=== PATIENT | male | born 1960 | race Caucasian/White ===

== ENCOUNTER 2016-10-26 22:21 | Emergency (ER) | payer OTHER ==
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
--- NOTE | 2016-10-26 23:40 | CT ---
History: Reason: Pain Exam: CT HEAD Without Contrast axial noncontrast images through the brain with multiplanar reformatted images Technique more: CTDI is 57.40 mGy and DLP is 1038.50 mGy-cm. Technique more: This CT exam was performed using one or more of the following dose reduction techniques: automated exposure control, adjustment of the mA and/or kV according to patient size, and/or use of iterative reconstruction technique. Comparison: None available FINDINGS: No intracranial hemorrhage, mass effect or calvarial fracture. The ventricles are within limits and midline. The العلي-white differentiation appears preserved. Mild volume loss, atrophy noted. The visualized paranasal sinuses and right mastoid are clear. Very mild partial fluid opacification left mastoid tip. Old left medial orbital wall fracture deformity. Right globe prosthesis. IMPRESSION: No intracranial hemorrhage, mass effect or calvarial fracture. Mild volume loss, atrophy noted. Very mild partial fluid opacification left mastoid tip. Old left medial orbital wall fracture deformity. Right globe prosthesis. Exam: CT C SPINE Without Contrast axial noncontrast images through the cervical spine with multiplanar reformatted images Technique more: CTDI is 70.90 mGy and DLP is 1047.80 and 589.60 mGy-cm. Technique more: This CT exam was performed using one or more of the following dose reduction techniques: automated exposure control, adjustment of the mA and/or kV according to patient size, and/or use of iterative reconstruction technique. Comparison: None available FINDINGS: No evidence of acute fracture or malalignment. The head is tilted to the right. No evidence of prevertebral soft tissue swelling. Multilevel spondylosis/discogenic change noted. 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 Bilateral left greater than right carotid calcific plaque formation noted. The visualized lung apices are clear. IMPRESSION: No evidence of acute fracture or malalignment. Multilevel spondylosis/discogenic change noted. 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 Bilateral left greater than right carotid calcific plaque formation noted. May consider follow-up with nonemergent carotid Doppler as warranted.
--- NOTE | 2016-10-26 23:42 | XR ---
History: Reason: Pain Exam: XR CXR 1 VIEW Comparison: None available FINDINGS: Possible anterior right third and fourth rib and possible lateral sixth rib fracture which may be acute, clinically correlate. The lungs appear clear. The cardiac silhouette appears upper limits for technique. Bilateral shoulder degenerative changes noted with appearance of possible intra-articular osseous body on the left. IMPRESSION: Possible anterior right third and fourth rib and possible lateral sixth rib fracture which may be acute, clinically correlate. Bilateral shoulder degenerative changes noted with appearance of possible intra-articular osseous body on the left.
--- NOTE | 2016-10-26 23:45 | XR ---
History: Reason: Pain Exam: XR PELVIS 2 images Comparison: None available FINDINGS: No evidence of fracture or dislocation. Handcuffs noted. IMPRESSION: No evidence of fracture or dislocation. Handcuffs noted.
[2016-10-27 00:04] VITALS: BP 153/93; PULSE 89; RESP 16; TEMP 97.3
== END 2016-10-27 00:07 | disposition home or self-care (01) ==
LOC: EC 22:21
DX: Z04.3 Encounter for examination and observation following other accident (principal); F10.129 Alcohol abuse with intoxication, unspecified; E11.9 Type 2 diabetes mellitus without complications; E78.5 Hyperlipidemia, unspecified; I10 Essential (primary) hypertension; E07.9 Disorder of thyroid, unspecified; F17.200 Nicotine dependence, unspecified, uncomplicated; Z79.82 Long term (current) use of aspirin; Z79.84 Long term (current) use of oral hypoglycemic drugs; Z79.899 Other long term (current) drug therapy; W19.XXXA Unspecified fall, initial encounter
CPT/HCPCS: 70450; 71010; 72125; 72170; 99285

== ENCOUNTER 2019-11-26 15:47 | Emergency (ER) | payer OTHER ==
[2019-11-26 15:53] VITALS: BP 132/75; PULSE 74; RESP 16; TEMP 98.2
--- NOTE | 2019-11-26 16:12 | ED ---
General Adult HPI - General Chief complaint: Recheck/Abnormal Lab/Rx Stated complaint: Lump in Neck Time Seen by Provider: 11/26/19 15:54 Source: patient, RN notes reviewed Mode of arrival: ambulatory Limitations: no limitations - History of Present Illness Initial comments: Patient is a 59-year-old male presenting to the emergency department with compl aints of swelling in the right side of his neck. Patient states symptoms have been present for around 6 months. Patient states he has difficulty swallowing with the right side of his throat however still seems to pass clearly to the left side. Patient states symptoms have been persistent. No dyspnea. Patient is a smoker. Patient is warned of risk of smoking. No chest pain or dyspnea. - Related Data Home Medications Medication Instructions Recorded Confirmed Aspirin [Adult Low Dose Aspirin EC] 81 mg PO DAILY 10/26/16 10/26/16 Atenolol/Chlorthalidone 0.5 tab PO DAILY 10/26/16 10/26/16 [Atenolol-Chlorthalidone 50-25] Ergocalciferol (Vitamin D2) 50,000 unit PO Q28D 10/26/16 10/26/16 [Vitamin D2] Levothyroxine Sodium [Synthroid] 25 mcg PO DAILY 10/26/16 10/26/16 Simvastatin 80 mg PO DAILY 10/26/16 10/26/16 allopurinoL [Zyloprim] 300 mg PO DAILY 10/26/16 10/26/16 lisinopriL [Zestril] 5 mg PO DAILY 10/26/16 10/26/16 metFORMIN HCL 1,000 mg PO W/SUPPER 10/26/16 10/26/16 Allergies Allergy/AdvReac Type Severity Reaction Status Date / Time No Known Allergies Allergy Verified 11/26/19 15:53 Review of Systems ROS Statement: Those systems with pertinent positive or pertinent negative responses have been documented in the HPI. ROS Other: All systems not noted in ROS Statement are negative. Constitutional: Denies: fever Eyes: Denies: eye pain ENT: Reports: as per HPI. Denies: ear pain Respiratory: Denies: cough, dyspnea Cardiovascular: Denies: chest pain Endocrine: Denies: fatigue Gastrointestinal: Denies: abdominal pain Genitourinary: Denies: dysuria Musculoskeletal: Denies: back pain Skin: Denies: rash Neurological: Denies: weakness Past Medical History Past Medical History: Diabetes Mellitus, Hyperlipidemia, Hypertension, Thyroid Disorder Additional Past Medical History / Comment(s): Gout, rigth eye blindness. History of Any Multi-Drug Resistant Organisms: None Reported Past Surgical History: No Surgical Hx Reported Past Psychological History: No Psychological Hx Reported Smoking Status: Never smoker Past Alcohol Use History: Abuse, Daily Past Drug Use History: None Reported General Exam Limitations: no limitations General appearance: alert, in no apparent distress Head exam: Present: normocephalic Eye exam: Present: normal appearance ENT exam: Present: normal oropharynx Neck exam: Present: normal inspection, other (No swelling). Absent: tenderness, lymphadenopathy Respiratory exam: Present: normal lung sounds bilaterally Cardiovascular Exam: Present: regular rate, normal rhythm GI/Abdominal exam: Present: soft. Absent: tenderness Extremities exam: Present: normal inspection Neurological exam: Present: alert, CN II-XII intact Psychiatric exam: Present: normal affect, normal mood Skin exam: Present: normal color Course Vital Signs 11/26/19 15:49 Temperature 98.2 F Pulse Rate 74 Respiratory 16 Rate Blood Pressure 132/75 O2 Sat by Pulse 98 Oximetry Medical Decision Making - Medical Decision Making Patient has eloped Disposition Clinical Impression: Dysphagia Disposition: Left Against Medical Advice Is patient prescribed a controlled substance at d/c from ED?: No Referrals: Balta Snider MD [Primary Care Provider] - 1-2 days Time of Disposition: 16:13
== END 2019-11-26 16:28 | disposition left against medical advice (07) ==
LOC: EC 15:47
DX: R13.10 Dysphagia, unspecified (principal); Z53.29 Procedure and treatment not carried out because of patient's decision for other reasons; I10 Essential (primary) hypertension; E78.5 Hyperlipidemia, unspecified; E07.9 Disorder of thyroid, unspecified; E11.9 Type 2 diabetes mellitus without complications; H54.61 Unqualified visual loss, right eye, normal vision left eye; Z79.82 Long term (current) use of aspirin; Z79.890 Hormone replacement therapy; Z79.899 Other long term (current) drug therapy; Z79.84 Long term (current) use of oral hypoglycemic drugs
CPT/HCPCS: 99283

== ENCOUNTER 2023-10-16 15:32 | Emergency (ER) | payer OTHER ==
[2023-10-16 15:43] VITALS: BP 137/76; PULSE 130; RESP 20; TEMP 97.3
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
[2023-10-16 16:40] LABS: ALT 13 U/L (4-49); AST 22 U/L (17-59); African American GFR (CKD) 72 (>60 ml/min/1.73 sqM); Albumin 4.1 g/dL (3.5-5.0); Alkaline Phosphatase 107 U/L (38-126); Anion Gap 16 mmol/L; Blood Urea Nitrogen 12 mg/dL (9-20); Calcium 8.9 mg/dL (8.4-10.2); Carbon Dioxide 20 mmol/L (22-30); Chloride 104 mmol/L (98-107); Glucose 204 mg/dL (74-99); Magnesium 1.8 mg/dL (1.6-2.3); Non-African American GFR(CKD) 62 (>60 ml/min/1.73 sqM); Potassium 3.8 mmol/L (3.5-5.1); Sodium 140 mmol/L (137-145); Total Bilirubin 0.7 mg/dL (0.2-1.3); Total Protein 6.7 g/dL (6.3-8.2)
[2023-10-16 16:57] LABS: Alcohol 315 mg/dL
[2023-10-16 17:43] LABS: Amphetamine Screen,Urine Not Detected (NotDetected); Barbiturate Screen,Urine Not Detected (NotDetected); Benzodiazepines Screen,Urine Not Detected (NotDetected); Cocaine Screen,Urine Not Detected (NotDetected); Methadone Screen, Urine Not Detected (NotDetected); Opiate Screen,Urine Detected (NotDetected); Oxycodone Screen, Urine Not Detected (NotDetected); Phencyclidine Screen,Urine Not Detected (NotDetected); Tricyclic Antidepressant,Urine Not Detected (NotDetected); Urn Cannabinoid Scrn Not Detected (NotDetected)
== END 2023-10-16 19:59 | disposition home or self-care (01) ==
LOC: EC 15:32
DX: S00.31XA Abrasion of nose, initial encounter (principal); F10.129 Alcohol abuse with intoxication, unspecified; F17.200 Nicotine dependence, unspecified, uncomplicated; Y90.8 Blood alcohol level of 240 mg/100 ml or more; X58.XXXA Exposure to other specified factors, initial encounter
CPT/HCPCS: 36415; 80053; 83735; 80306; 99284; G0480; 80320

== ENCOUNTER → 2023-11-28 | Outpatient (CLI) | payer OTHER ==
--- NOTE | 2023-11-28 14:44 | US ---
EXAMINATION TYPE: US kidneys/renal and bladder DATE OF EXAM: 11/28/2023 COMPARISON: NONE CLINICAL INDICATION: Male, 63 years old with history of R39.198 DIFFICULTY URINATING; Difficulty urin ating EXAM MEASUREMENTS: Right Kidney: 11.8 x 6.1 x 4.8 cm Left Kidney: 11.7 x 5.2 x 4.9 cm Post Void Residual Volume: 0 mL, bladder not seen post-void Right Kidney: No hydronephrosis or masses seen Left Kidney: Anechoic area seen lower pole: 1.4 x 1.2 x 0.8 cm. Bladder: Appears anechoic. Bilateral Jets seen: Yes Normal Post Void Residual: Yes. Evaluation was slightly limited, patient's bladder was not fully di stended, patient did not want to prep bladder longer. Bladder not seen post-void. IMPRESSION: 1. No evidence for obstructive uropathy or mass. 2. Urinary bladder is grossly unremarkable in anechoic.
== END | disposition home or self-care (01) ==
LOC: RADUSWWP 14:13
PROVIDERS: ATTEND Family Medicine
DX: R39.198 Other difficulties with micturition (principal)
CPT/HCPCS: 76770